=== PATIENT | female | born 1990 | race Caucasian/White ===

== ENCOUNTER 2018-04-15 04:33 | Emergency (ER) | payer OTHER ==
[2018-04-15 04:59] LABS: URINE BLOOD (Dip) POC 2+ (NEGATIVE); URINE GLUCOSE (Dip) POC Negative (NEGATIVE); URINE KETONES (Dip) POC Negative (NEGATIVE); URINE LEUKOCYTE EST (Dip) POC 2+ (NEGATIVE); URINE NITRITE (Dip) POC Negative (NEGATIVE); URINE TOTAL PROTEIN POC Negative (NEGATIVE)
== END 2018-04-15 05:33 | disposition home or self-care (01) ==
LOC: FTE 04:33
DX: N30.01 Acute cystitis with hematuria (principal)
CPT/HCPCS: 81003; 81025; 99283

== ENCOUNTER 2018-04-24 22:17 | Emergency (ER) | payer SELFPAY, OTHER | END 2018-04-25 01:23 | disposition left against medical advice (07) | LOC: FTE 22:17 | DX: Z53.21 Procedure and treatment not carried out due to patient leaving prior to being seen by health care provider (principal) ==

== ENCOUNTER 2018-12-30 15:17 | Emergency (ER) | payer OTHER | END 2018-12-30 19:00 | disposition home or self-care (01) | LOC: FTE 15:17 | DX: R05 Cough (principal) | CPT/HCPCS: 99283; Z7502 ==